=== PATIENT | female | born 1990 | race Caucasian/White ===

== ENCOUNTER 2018-12-07 04:36 | Inpatient (IN) | payer MEDICAID, OTHER ==
[~2018-12-07] VITALS: Ht 160 cm; Wt 79.4 kg
[2018-12-07] MEDS ORDERED: ONDANSETRON HCL 4MG/2ML INJ IV STA (06:16)
[2018-12-07] MEDS ORDERED: MORPHINE SULFATE 4 MG/ML CPJ (NOT FOR IM USE) IV STA (06:16)
[2018-12-07] MEDS ORDERED: PANTOPRAZOLE SODIUM 40 MG/VIAL IV STA (06:16)
[2018-12-07] MEDS ORDERED: SODIUM CHLORIDE 0.9% 1,000 ML IV ONE (06:16)
[2018-12-07 06:49] LABS: BASOPHILS % 0.5 % (0.0-2.0); EOSINOPHILS % 2.6 % (0.0-5.0); HEMATOCRIT. 37.8 % (36.0-48.0); HEMOGLOBIN. 12.5 g/dL (12.0-16.0); LYMPHOCYTES % 29.3 % (20.0-50.0); MEAN CORPUSCULAR HEMOGLOBIN 26.1 pg (28.0-32.0); MEAN CORPUSCULAR VOLUME 78.8 fL (81.0-99.0); MEAN PLATELET VOLUME 10.6 fl (7.4-10.4); MONOCYTES % 6.1 % (2.0-8.0); NEUTROPHILS % 61.5 % (40.0-76.0); PLATELET 269 x1000/uL (130-400); RED BLOOD CELL COUNT 4.79 mill/uL (4.2-5.4); RED CELL DISTRIBUTION WIDTH 15.5 % (11.6-14.6)
[2018-12-07 06:52] LABS: CHLORIDE 106 mEq/L (98-107); PROTHROMBIN TIME 10.6 sec (9.6-11.0)
[2018-12-07 06:56] LABS: ETHANOL BLOOD < 10 mg/dL
[2018-12-07 07:00] LABS: TOTAL IRON BINDING CAPACITY 383 ug/dL (250-450)
[2018-12-07 07:04] LABS: HCG SCREEN NEGATIVE
[2018-12-07] MEDS ORDERED: KCL 10MEQ/50ML PREMIX 50 ML IV ONE (07:15)
[2018-12-07] MEDS ORDERED: POLYETHYLENE GLYCOL-ELECTROLYTE 4000ML PO ONE (08:15)
[2018-12-07 08:34] LABS: CLARITY URINE CLOUDY (CLEAR); COLOR URINE YELLOW (YELLOW); KETONES URINE NEGATIVE (NEGATIVE); LEUKOCYTE ESTERASE URINE 2+ (NEGATIVE); NITRITE URINE NEGATIVE (NEGATIVE); OCCULT BLOOD URINE TRACE (NEGATIVE); PROTEIN URINE NEGATIVE (NEGATIVE); SPECIFIC GRAVITY URINE 1.016 (1.005-1.030); UROBILINOGEN URINE 0.2 E.U./dL (0.2-1.0)
[2018-12-07] MEDS ORDERED: CEFTRIAXONE 1 G PREMIX 50 ML IV ONE (08:45)
[2018-12-07 08:53] LABS: *BARBITURATES SCREEN URINE NEGATIVE (NEGATIVE); *BENZODIAZEPINES SCREEN URINE NEGATIVE (NEGATIVE); *COCAINE SCREEN URINE NEGATIVE (NEGATIVE)
[2018-12-07 08:54] LABS: *AMPHETAMINES SCREEN URINE NEGATIVE (NEGATIVE); METHADONE URINE SCREEN NEGATIVE (NEGATIVE); PHENCYCLIDINE URINE SCREEN NEGATIVE (NEGATIVE)
[2018-12-07 08:58] LABS: CANNABINOID URINE SCREEN PRESUMTIVE POSITIVE (NEGATIVE); OPIATES URINE SCREEN PRESUMTIVE POSITIVE (NEGATIVE)
[2018-12-07] MEDS ORDERED: IPRATROPIUM/ALBUTEROL 0.5-3(2.5)MG/3ML NEB INH PRN (10:15)
[2018-12-07] MEDS ORDERED: DOCUSATE SODIUM 100MG CAPSULE PO PRN (10:15)
[2018-12-07] MEDS ORDERED: ONDANSETRON HCL 4MG/2ML INJ IV PRN (10:15)
[2018-12-07] MEDS ORDERED: KETOROLAC 15MG/ML VIAL IV PRN (10:15)
[2018-12-07] MEDS ORDERED: ACETAMINOPHEN 325MG TABLET PO PRN (10:15)
[2018-12-07] MEDS ORDERED: KCL 20MEQ/100ML PREMIX 100 ML IV ONE (11:00)
[2018-12-07 11:30] VITALS: BP 115/62
[2018-12-07 11:46] VITALS: BP 115/62
[2018-12-07] MEDS: LEVOFLOXACIN 500MG PREMIX 100 ML IV SCH (13:20)
[2018-12-07] MEDS: FAMOTIDINE 20MG TABLET PO SCH ×2 (13:20→21:47)
[2018-12-07] MEDS: DEXT 5%/0.9% NACL KCL 20MEQ/L 1,000 ML IV SCH ×2 (13:21→21:46)
[2018-12-07] MEDS ORDERED: FERR324T4 MT (13:32)
[2018-12-07] MEDS ORDERED: METR500T MT (13:32)
[2018-12-07 16:02] VITALS: BP 112/60
[2018-12-07 20:00] VITALS: BP 117/59
[2018-12-07 20:05] LABS: HEMATOCRIT 30.2 % (36.0-48.0); HEMOGLOBIN 10.2 g/dL (12.0-16.0); MEAN CORPUSCULAR HEMOGLOBIN 26.8 pg (28.0-32.0); MEAN CORPUSCULAR VOLUME 79.1 fL (81.0-99.0); PLATELET 215 x1000/uL (130-400); RED BLOOD CELL COUNT 3.82 mill/uL (4.2-5.4); RED CELL DISTRIBUTION WIDTH 15.6 % (11.6-14.6)
[2018-12-07 20:14] LABS: CHLORIDE 109 mEq/L (98-107)
[2018-12-07 20:22] LABS: TOTAL IRON BINDING CAPACITY 300 ug/dL (250-450)
[2018-12-07] MEDS ORDERED: POTASSIUM CHLORIDE 20MEQ/PACKET PO NR (20:24)
[2018-12-07] MEDS ORDERED: ZOLPIDEM TARTRATE 5MG TABLET PO PRN (21:00)
[2018-12-08] VITALS: BP 114/60
[2018-12-08 04:00] VITALS: BP 115/63
[2018-12-08 06:04] LABS: CHLORIDE 112 mEq/L (98-107)
[2018-12-08 06:26] LABS: TOTAL IRON BINDING CAPACITY 284 ug/dL (250-450)
[2018-12-08 06:36] LABS: BASOPHILS % 0.5 % (0.0-2.0); EOSINOPHILS % 2.4 % (0.0-5.0); HEMOGLOBIN. 10.4 g/dL (12.0-16.0); LYMPHOCYTES % 14.4 % (20.0-50.0); MEAN CORPUSCULAR HEMOGLOBIN 26.4 pg (28.0-32.0); MEAN CORPUSCULAR VOLUME 79.3 fL (81.0-99.0); MEAN PLATELET VOLUME 10.3 fl (7.4-10.4); MONOCYTES % 5.5 % (2.0-8.0); NEUTROPHILS % 77.2 % (40.0-76.0); PLATELET 221 x1000/uL (130-400); RED BLOOD CELL COUNT 3.91 mill/uL (4.2-5.4); RED CELL DISTRIBUTION WIDTH 15.7 % (11.6-14.6)
[2018-12-08 08:00] VITALS: BP 127/66
[2018-12-08] MEDS: DEXT 5%/0.9% NACL KCL 20MEQ/L 1,000 ML IV SCH (08:21)
[2018-12-08] MEDS: FAMOTIDINE 20MG TABLET PO SCH (09:41)
[2018-12-08 12:54] VITALS: BP 127/70
[2018-12-08] MEDS: LEVOFLOXACIN 500MG PREMIX 100 ML IV SCH (13:15)
[2018-12-08 14:01] VITALS: BP 127/70
== END 2018-12-08 14:46 | disposition home or self-care (01) | DRG 812 ==
LOC: ER 04:36 → 7WST 08:30 → EDBEDREQ 08:38 → EDBEDREQSVC 08:38 → ENRESERV 10:18
PROVIDERS: ADMIT Internal Medicine; ATTEND Internal Medicine
DX: T37.3X1A Poisoning by other antiprotozoal drugs, accidental (unintentional), initial encounter (principal); E87.6 Hypokalemia; T45.4X1A Poisoning by iron and its compounds, accidental (unintentional), initial encounter; K29.70 Gastritis, unspecified, without bleeding; N39.0 Urinary tract infection, site not specified; Y92.89 Other specified places as the place of occurrence of the external cause; T40.7X1A Poisoning by cannabis (derivatives), accidental (unintentional), initial encounter; T40.601A Poisoning by unspecified narcotics, accidental (unintentional), initial encounter
CPT/HCPCS: 36415; 71045; 74176; 80048; 80076; 80305; 80307; 80320; 80329; 82962; 83036; 83540; 83550; 83735; 84484; 84703; 85027; 93005; 93970; 96365; 96366; 96368; 96375; 99291; C9113; J0696; J1956; J2270; J2405; J3480; J7030; J7050; G0480